=== PATIENT | female | born 1965 | race Two or more races ===

== ENCOUNTER 2020-07-11 08:30 | Outpatient (REF) | payer MEDICAID, SELFPAY ==
--- NOTE | ~2020-07-11 | MM_ITS ---
EXAMINATION: MM SCREENING DIGITAL BREAST TOMOSYNTHESIS, BILATERAL CLINICAL INFORMATION: Screening. Asymptomatic. Prior mammography from [place] currently unavailable. Age 54. The lifetime risk of breast cancer based on the Tyrer-Cuzick Model is 8%. COMPARISON: None. TECHNIQUE: Digital breast tomosynthesis is performed in both the craniocaudal and mediolateral oblique views along with computer-aided detection (CAD). Synthesized 2D images are generated from the tomosynthesis. FINDINGS: There are scattered areas of fibroglandular density (ACR BI-RADS breast composition Category b). There are no significant masses, abnormal calcifications, or other abnormalities. The axilla and skin contours are unremarkable. MM/MM tomosynthesis screening BI IMPRESSION: No mammographic evidence of malignancy. ASSESSMENT: BI-RADS 1: Negative RECOMMENDATION: 1. Routine annual mammography screening. 2. If previous outside mammography from [place] is made available, we will make comparison in an addendum report. This patient's information was entered into a reminder system with a target due date for their next mammogram.
== END 2020-07-11 08:31 | disposition home or self-care (01) ==
LOC: HO.MAMMO 08:30
PROVIDERS: PCP Internal Medicine; Visit Provider Internal Medicine
DX: Z12.31 Encounter for screening mammogram for malignant neoplasm of breast (principal)
CPT/HCPCS: 77063; 77067

== ENCOUNTER → 2021-01-12 10:20 | Outpatient (BNVA) | payer MEDICAID, SELFPAY | PROVIDERS: Visit Provider Orthopaedic Surgery | DX: M70.71 Other bursitis of hip, right hip (principal); M70.72 Other bursitis of hip, left hip | CPT/HCPCS: 99202 ==

== ENCOUNTER 2021-07-07 11:11 | Emergency (ER) | payer MEDICAID, SELFPAY ==
--- NOTE | ~2021-07-07 | XR_ITS ---
EXAMINATION: XR CHEST CLINICAL INFORMATION: Chest pain COMPARISON: None TECHNIQUE: Frontal view of the chest was obtained. FINDINGS: There is small groundglass opacity right suprahilar region versus confluence of vascular markings and superimposed thoracic cage. There is no air bronchogram. The lungs otherwise clear. The costophrenic sulci are well-defined. There is no pneumothorax or pleural reaction. The vascularity is normal. The heart is normal in size. The mediastinal contours are normal. No acute bony abnormality. XR/XR chest 1V IMPRESSION: -No pneumothorax, pleural reaction, or effusion. -Small groundglass opacity right suprahilar region versus artifact from confluence of vascular markings and superimposed thoracic cage.
[2021-07-07 11:23] VITALS: BP 119/67; PULSE 93; RESP 18; TEMP 36.1; O2SAT 98; BMI 27.7
--- NOTE | 2021-07-07 11:27 | ECG_ITS ---
Test Reason : cp Blood Pressure : / mmHG Vent. Rate : 078 BPM Atrial Rate : 078 BPM P-R Int : 142 ms QRS Dur : 084 ms QT Int : 366 ms P-R-T Axes : 016 -72 013 degrees QTc Int : 417 ms Normal sinus rhythm Left anterior fascicular block Possible Anterolateral infarct , age undetermined Abnormal ECG No previous ECGs available Referred By: Generic ED Physician Electronically Signed By:Gonzalez Dunlap
[2021-07-07 11:41] LABS: MANUAL DIFF FLAG NO
[2021-07-07 11:43] LABS: Basophils Absolute Auto 0.1 X10*3/uL (0.0-0.2); Basophils Percent Auto 0.9 % (0-2); Eosinophils Percent Auto 0.7 % (0-4); Hematocrit 31.8 % (37.0-47.0); Hemoglobin 10.1 g/dl (12.0-16.0); Imm Gran Abs Auto 0.02 X10*3/uL (0.00-0.03); Imm Gran Pct Auto 0.3 % (0.0-0.4); Lymphocytes Absolute Auto 1.8 X10*3/uL (1.2-4.9); Lymphocytes Percent Auto 31.9 % (20-40); Mean Corpuscular HGB Conc 31.8 g/dl (31.0-35.0); Mean Corpuscular Hemoglobin 26.8 pg (27.0-33.0); Mean Corpuscular Volume 84.4 fL (80.0-98.0); Mean Platelet Volume 10.6 fL (9.4-12.3); Monocytes Absolute Auto 0.4 X10*3/uL (0.1-1.2); Monocytes Percent Auto 6.1 % (2-11); Neutrophils Absolute Auto 3.5 x10*3/uL (2.0-8.3); Neutrophils Percent Auto 60.1 % (45-73); Platelet Count 422 X10*3/uL (160-400); Red Blood Count 3.77 X10*6/uL (4.20-5.50); Red Cell Distribution Width 15.5 % (11.0-16.0); White Blood Count 5.8 X10*3/uL (4.8-10.8)
[2021-07-07 12:00] LABS: Anion Gap 17 (12-20); Blood Urea Nitrogen 22 mg/dL (9-16); Calcium 9.9 mg/dL (8.4-10.2); Carbon Dioxide 26 mmol/L (22-29); Chloride 100 mmol/L (96-108); Creatinine Clr Calc Pharmacy 56.4; Estimated Glomerular Filt Rate 57; Glucose Random 198 mg/dL (60-115); Potassium 3.8 mmol/L (3.3-5.1); Sodium 139 mmol/L (135-145)
[2021-07-07 12:04] LABS: Troponin-I High Sensitivity < 3.5 ng/L (<3.5-17.0)
--- NOTE | 2021-07-07 13:17 | ED_ITS ---
HPI - Chest Pain General Chief Complaint: Chest Pain Stated Complaint: chest pain Time Seen by Provider: 07/07/21 13:17 Source: patient and manager wireless Mode of arrival: ambulatory Limitations: no limitations History of Present Illness MD complaint: chest pain Onset (ago): day(s) (3) Timing of current episode: episodic Prior episodes: Yes Onset: during rest Pain location: substernal and left chest Pain radiation: left arm Severity: moderate Quality: tightness and heaviness Relieving factors: nothing Exacerbating factors: palpation and movement (when she moves her arms) Associated symptoms: other (no associated symptoms) Treatment prior to arrival: none Related Data Previous Rx's Medication Instructions Recorded cyclobenzaprine 10 mg tablet 10 mg PO TID PRN #14 tab 07/07/21 Allergies Allergy/AdvReac Type Severity Reaction Status Date / Time iodine Allergy rash Verified 01/12/21 10:44 Review of Systems Review of Systems: Constitutional : No Weight loss, No Fever, No Chills ENT/Mouth : No sore throat, No Rhinorrhea Eyes: No Eye Pain, No Swelling Cardiovascular : pos Chest Pain, no SOB, no Dyspnea on Exertion, No Orthopnea, No Edema, No Palpitations Respiratory : No Cough, No Sputum Gastrointestinal : no Nausea, No Vomiting, No Diarrhea, No abdominal Pain, No Hematochezia, No Melena Genitourinary : No Dysuria, No Urinary Frequency Musculoskeletal : No joint pain, No Myalgias, No Joint Swelling Skin : No Skin Lesions, No rash Neuro : No Weakness, No Numbness, No Dizziness, No Headache Psych : No Anxiety/Panic, No Depression Heme/Lymph: No Bruising, No Lymphadenopathy Endocrine : No Polyuria, No Polydipsia All other systems reviewed and are negative FOR[facility], LAT[facility] Past Medical History Medical History Diabetes High blood pressure High cholesterol Social History Social History (Updated 07/07/21 @ 13:57 by Unique Cooper DO) Patient Tobacco Use Status: Never used Tobacco Advance Directives: No Advance Directives Information Provided: No Current occupational status: employed Current occupation: rt hand Physical Exam Vital Signs: Vital Signs: Last Vital Signs Temp 98.2 F 07/07/21 13:29 Pulse 66 07/07/21 13:29 Resp 18 07/07/21 13:29 BP 129/55 L 07/07/21 13:29 Pulse Ox 100 07/07/21 13:29 BMI result Body Mass Index 27.7 Appearance: Alert. Oriented X3. No acute distress. Eyes: Pupils equal, round and reactive to light. ENT: Pharynx normal. Neck: Normal inspection. Neck supple. CVS: Normal heart rate and rhythm. Pulses normal. Chest wall: ttp along costochondral border reproduces pain Respiratory: No respiratory distress. Breath sounds normal. Abdomen: Soft and nontender. Skin: Skin warm and dry. Normal skin color. Normal skin turgor. Extremities: No lower extremity edema. No calf ttp Neuro: Oriented X 3. No motor deficit. No sensory deficit. Course Course Course Narrative: two trops negative, ddimer negative, nonspecific ant t wave inversions - old EKG [facility] not available very atypical for ACS heart score is 4 but again very atypical it is reproduceable and she has had two negative markers with non exertional CP and no associated symptoms t wave inversions present 2019 from [facility] EKG MDM - Chest Pain MDM Narrative Medical decision making narrative: 55 yo female with hx of HTN, DM, here with c/o chest pain x 3 days worse with movements and palpation not related to exertion. She has no associated symptoms such as dyspnea, n/v. The pain is very reproduceable at this time. Will obtain EKG, obtain old EKG from [facility], troponin x 2, ddimer given ant t wave inversions. Her pain is atypical in nature. Lab Data Result diagrams: 07/07/21 11:37 07/07/21 11:37 Labs: Lab Results 07/07/21 07/07/21 07/07/21 Range/Units 11:37 11:37 11:37 WBC 5.8 (4.8-10.8) X10*3/uL RBC 3.77 L (4.20-5.50) X10*6/uL Hgb 10.1 L (12.0-16.0) g/dl Hct 31.8 L (37.0-47.0) % MCV 84.4 (80.0-98.0) fL MCH 26.8 L (27.0-33.0) pg MCHC 31.8 (31.0-35.0) g/dl RDW 15.5 (11.0-16.0) % Plt Count 422 H (160-400) X10*3/uL MPV 10.6 (9.4-12.3) fL Immature Gran % (Auto) 0.3 (0.0-0.4) % Neut % (Auto) 60.1 (45-73) % Lymph % (Auto) 31.9 (20-40) % Lipscomb % (Auto) 6.1 (2-11) % Eos % (Auto) 0.7 (0-4) % Baso % (Auto) 0.9 (0-2) % Lymph # (Auto) 1.8 (1.2-4.9) X10*3/uL Lipscomb # (Auto) 0.4 (0.1-1.2) X10*3/uL Eos # (Auto) 0.0 (0.0-0.4) X10*3/uL Baso # (Auto) 0.1 (0.0-0.2) X10*3/uL Abs Immat Gran (auto) 0.02 (0.00-0.03) X10*3/uL Absolute Neuts (auto) 3.5 (2.0-8.3) x10*3/uL Absolute Nucleated RBC 0.000 (0.0-0.012) X10*3/uL Nucleated RBC % (auto) 0.0 (0.0-0.2) /100WBC D-Dimer High Sensitivty NG/ML Sodium 139 (135-145) mmol/L Potassium 3.8 (3.3-5.1) mmol/L Chloride 100 (96-108) mmol/L Carbon Dioxide 26 (22-29) mmol/L Anion Gap 17 (12-20) BUN 22 H (9-16) mg/dL Creatinine 1.00 (0.5-1.4) mg/dL Estim Creat Clear Calc 56.4 Estimated GFR 57 Random Glucose 198 H (60-115) mg/dL Calcium 9.9 (8.4-10.2) mg/dL Troponin I High Sens < 3.5 (<3.5-17.0) ng/L 07/07/21 07/07/21 Range/Units 14:08 14:08 WBC (4.8-10.8) X10*3/uL RBC (4.20-5.50) X10*6/uL Hgb (12.0-16.0) g/dl Hct (37.0-47.0) % MCV (80.0-98.0) fL MCH (27.0-33.0) pg MCHC (31.0-35.0) g/dl RDW (11.0-16.0) % Plt Count (160-400) X10*3/uL MPV (9.4-12.3) fL Immature Gran % (Auto) (0.0-0.4) % Neut % (Auto) (45-73) % Lymph % (Auto) (20-40) % Lipscomb % (Auto) (2-11) % Eos % (Auto) (0-4) % Baso % (Auto) (0-2) % Lymph # (Auto) (1.2-4.9) X10*3/uL Lipscomb # (Auto) (0.1-1.2) X10*3/uL Eos # (Auto) (0.0-0.4) X10*3/uL Baso # (Auto) (0.0-0.2) X10*3/uL Abs Immat Gran (auto) (0.00-0.03) X10*3/uL Absolute Neuts (auto) (2.0-8.3) x10*3/uL Absolute Nucleated RBC (0.0-0.012) X10*3/uL Nucleated RBC % (auto) (0.0-0.2) /100WBC D-Dimer High Sensitivty < 150 NG/ML Sodium (135-145) mmol/L Potassium (3.3-5.1) mmol/L Chloride (96-108) mmol/L Carbon Dioxide (22-29) mmol/L Anion Gap (12-20) BUN (9-16) mg/dL Creatinine (0.5-1.4) mg/dL Estim Creat Clear Calc Estimated GFR Random Glucose (60-115) mg/dL Calcium (8.4-10.2) mg/dL Troponin I High Sens < 3.5 (<3.5-17.0) ng/L ECG Data ECG #1: Attestation: I personally reviewed and interpreted this ECG as follows: ECG interpretation date: 07/07/21 ECG interpretation time: 13:17 Interpretation: Rate: 78 Rhythm: NSR [place]: left Normal P waves. Normal ALISIA. Normal QRS complex. ST T wave : inverted t wave V1-V3 no ANGUS qTC: normal prior studies: none available The study has been interpreted contemporaneously by me. . Scores Heart Score History: -0- slightly suspicious ECG: -1- non specific repolarization disturbance Age: -1- >45 - <65 Risk factory: -2- 3 or more risk factors or treated atherosclerosis Troponin: -0- < or = normal limit Score: 4 Risk: 16.6% Discharge Plan Discharge Clinical Impression: Chest pain Qualifiers: Chest pain type: precordial pain Qualified Code(s): R07.2 - Precordial pain Patient Disposition: Home, Self-Care Instructions: Chest Pain (ED) Additional Instructions: return to ED for any worsening symptoms or concerns dos pruebas card?acas negativas en sravanthi, radiograf?a normal, prueba de co?gulo de sravanthi negativa. por favor, iveth un seguimiento para la prueba de esfuerzo ambulatoria Prescriptions: New cyclobenzaprine 10 mg tablet 10 mg PO TID PRN (Reason: muscle spasm) Qty: 14 0RF Referrals: Gonzalez Dunlap MD [Physician] - 1 week Stand Alone Forms: Work/School Release Print Language: Mohawk
[2021-07-07 13:29] VITALS: BP 129/55; PULSE 66; RESP 18; TEMP 36.8; O2SAT 100
[2021-07-07] MEDS: Cyclobenzaprine HCl 10 MG TABLET PO (13:35)
[2021-07-07] MEDS: Acetaminophen 325 MG TABLET 650 MG PO (13:36)
[2021-07-07 14:24] LABS: D Dimer High Sensitivity < 150 NG/ML
[2021-07-07 14:38] LABS: Troponin-I High Sensitivity < 3.5 ng/L (<3.5-17.0)
== END 2021-07-07 15:21 | disposition home or self-care (01) ==
PROVIDERS: Emergency Provider Emergency Medicine; PCP Internal Medicine
DX: R07.2 Precordial pain (principal); E11.9 Type 2 diabetes mellitus without complications; E78.5 Hyperlipidemia, unspecified
CPT/HCPCS: 36415; 71045; 80048; 84484; 85025; 85379; 93005; 99283; 99284

== ENCOUNTER 2021-07-13 08:34 | Outpatient (REF) | payer MEDICAID, SELFPAY ==
--- NOTE | ~2021-07-13 | MM_ITS ---
EXAMINATION: MM SCREENING DIGITAL BREAST TOMOSYNTHESIS, BILATERAL CLINICAL INFORMATION: Screening. Asymptomatic. The lifetime risk of breast cancer based on the Tyrer-Cuzick Model is 8%. COMPARISON: Mammography: 07/11/2020 (new baseline) TECHNIQUE: Digital breast tomosynthesis is performed in both the craniocaudal and mediolateral oblique views along with computer-aided detection (CAD). Synthesized 2D images are generated from the tomosynthesis. FINDINGS: There are scattered areas of fibroglandular density (ACR BI-RADS breast composition Category b). There are no significant masses, abnormal calcifications, or other abnormalities. Parenchymal pattern is similar to prior exam. The axilla and skin contours are unremarkable. No significant changes. MM/MM tomosynthesis screening BI IMPRESSION: No mammographic evidence of malignancy. ASSESSMENT: BI-RADS 1: Negative RECOMMENDATION: Routine annual mammography screening. This patient's information was entered into a reminder system with a target due date for their next mammogram.
== END 2021-07-13 08:35 | disposition home or self-care (01) ==
LOC: HO.MAMMO 08:34
PROVIDERS: Visit Provider Internal Medicine
DX: Z12.31 Encounter for screening mammogram for malignant neoplasm of breast (principal)
CPT/HCPCS: 77063; 77067

== ENCOUNTER 2021-08-11 13:00 | Outpatient (RCR) | payer MEDICAID, SELFPAY | END 2021-08-13 12:49 | disposition home or self-care (01) | LOC: HO.PT 13:00 | PROVIDERS: PCP Internal Medicine; Visit Provider Internal Medicine | DX: M70.71 Other bursitis of hip, right hip (principal); M70.72 Other bursitis of hip, left hip | CPT/HCPCS: 97110; 97161 ==

== ENCOUNTER 2021-10-21 13:42 | Outpatient (REF) | payer MEDICAID, SELFPAY ==
--- NOTE | ~2021-10-21 | US_ITS ---
EXAMINATION: US RETROPERITONEAL LIMITED (RENAL ONLY) CLINICAL INFORMATION: Dysuria. Hematuria. COMPARISON: None. TECHNIQUE: Real-time imaging of the kidneys. FINDINGS: RIGHT KIDNEY: 10.8 x 5.2 x 4.0 cm (SAG x AP x TRV). The kidney is normal in size, lobulated contour, and echogenicity. Renal cortical thickness is normal. No calculi or focal parenchymal lesions. No hydronephrosis. LEFT KIDNEY: 10.7 x 4.7 x 4.0 cm (SAG x AP x TRV). The kidney is normal in size, lobulated contour, and echogenicity. Renal cortical thickness is normal. No calculi or focal parenchymal lesions. No hydronephrosis. US/US renal BI IMPRESSION: Slightly bilateral lobulated renal contour. No echogenic stones or hydronephrosis.
== END 2021-10-21 13:43 | disposition home or self-care (01) ==
LOC: HO.US 13:42
PROVIDERS: Visit Provider Emergency Medicine
DX: R10.9 Unspecified abdominal pain (principal); R30.0 Dysuria; R31.9 Hematuria, unspecified
CPT/HCPCS: 76775

== ENCOUNTER 2021-12-09 08:16 | Outpatient (REF) | payer MEDICAID, SELFPAY ==
--- NOTE | ~2021-12-09 | XR_ITS ---
EXAMINATION: XR FOOT, LEFT CLINICAL INFORMATION: Left foot pain. COMPARISON: None TECHNIQUE: AP, lateral, and oblique views of the left foot. FINDINGS: No fracture or malalignment. Focal periosteal bone formation at the medial margin of the distal shaft the second metatarsal may correspond to chronic periosteal reaction due to prior injury. A proliferative bone abnormality (such as bizarre parosteal osteochondromas proliferation) is on the differential, though less likely. There is mild to moderate multifocal osteoarthritis in the interphalangeal joints, most notably at the DIP joints of the second through fourth toes. MTP joints appear relatively well-preserved, as do the midfoot joints. Small enthesopathic spurs are present at the Achilles tendon insertion and plantar fascial origin on the calcaneus. XR/XR foot LT min 3V IMPRESSION: No acute osseous findings. 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 Small enthesopathic spurs at the Achilles tendon insertion and plantar fascial origin on the calcaneus.
== END 2021-12-09 08:17 | disposition home or self-care (01) ==
LOC: HO.XRAY 08:16
PROVIDERS: PCP Internal Medicine; Visit Provider Internal Medicine
DX: M79.672 Pain in left foot (principal)
CPT/HCPCS: 73630

== ENCOUNTER 2022-07-19 07:45 | Outpatient (REF) | payer MEDICAID, SELFPAY ==
--- NOTE | ~2022-07-19 | MM_ITS ---
EXAMINATION: MM SCREENING DIGITAL BREAST TOMOSYNTHESIS, BILATERAL CLINICAL INFORMATION: Screening. Asymptomatic. The lifetime risk of breast cancer based on the Tyrer-Cuzick Model is 6%. COMPARISON: Mammography: 07/13/2021, 07/11/2020 (new baseline). TECHNIQUE: Digital breast tomosynthesis is performed in both the craniocaudal and mediolateral oblique views along with computer-aided detection (CAD). Synthesized 2D images are generated from the tomosynthesis. FINDINGS: There are scattered areas of fibroglandular density (ACR BI-RADS breast composition Category b). There are no significant masses, abnormal calcifications, or other abnormalities. There is no developing density or architectural abnormality. Parenchymal pattern is similar to prior studies. The axilla and skin contours are unremarkable. MM/MM tomosynthesis screening BI IMPRESSION: No mammographic evidence of malignancy. ASSESSMENT: BI-RADS 1: Negative RECOMMENDATION: Routine annual mammography screening. This patient's information was entered into a reminder system with a target due date for their next mammogram.
== END 2022-07-19 07:46 | disposition home or self-care (01) ==
LOC: HO.MAMMO 07:45
PROVIDERS: PCP Internal Medicine; Visit Provider Internal Medicine
DX: Z12.31 Encounter for screening mammogram for malignant neoplasm of breast (principal)
CPT/HCPCS: 77063; 77067